=== PATIENT | female | born 1960 | race Caucasian/White ===

== ENCOUNTER 2020-02-26 20:22 | Emergency (ER) | payer MEDICARE, MEDICAID ==
[2020-02-26] MEDS ORDERED: Acetaminophen 500 MG TAB ONE (21:04)
--- NOTE | 2020-02-27 08:27 | RAD ---
RIGHT ANKLE 3 VIEWS: DATE: 02/26/2020. FINDINGS: Some soft tissue swelling is seen around the ankle, but no fractures were appreciated. The joint its elf appears normal. The surrounding bones showed no acute findings. IMPRESSION: Soft tissue swelling. POS: HOME
--- NOTE | 2020-02-27 08:38 | RAD ---
RIGHT LEG: DATE: 02/26/2020. FINDINGS: AP and lateral views are provided. No fracture or periosteal reaction was seen to explain leg pain. The tibia and fibula appear intact. The knee joint space appears normal and there is no sign of katia nt effusion there. A few very tiny minor osteophytes are beginning to form in the joint. IMPRESSION: No acute bony finding. POS: HOME
== END 2020-02-26 22:56 ==
LOC: BURERS 20:22
DX: S90.01XA Contusion of right ankle, initial encounter (principal); S80.11XA Contusion of right lower leg, initial encounter; W18.30XA Fall on same level, unspecified, initial encounter; I10 Essential (primary) hypertension; E11.9 Type 2 diabetes mellitus without complications; G40.909 Epilepsy, unspecified, not intractable, without status epilepticus

== ENCOUNTER 2020-05-23 09:58 | Outpatient (CLI) | payer MEDICARE, MEDICAID | END 2020-05-23 09:59 | disposition home or self-care (01) | LOC: BURRAD 09:58 | PROVIDERS: ATTEND Family Medicine | DX: M79.671 Pain in right foot (principal); M79.89 Other specified soft tissue disorders ==

== ENCOUNTER 2020-07-21 15:20 | Outpatient (CLI) | payer MEDICARE, OTHER | END 2020-07-21 15:21 | disposition home or self-care (01) | LOC: BURRAD 15:20 | PROVIDERS: ATTEND Family Medicine | DX: S93.401A Sprain of unspecified ligament of right ankle, initial encounter (principal); M25.571 Pain in right ankle and joints of right foot; M79.89 Other specified soft tissue disorders ==

== ENCOUNTER 2020-10-13 15:15 | Outpatient (CLI) | payer MEDICARE, MEDICAID ==
[2020-10-14 15:38] LABS: SARS-CoV-2 PCR by NAA Not Detected (NotDetected)
== END 2020-10-13 15:16 | disposition home or self-care (01) ==
LOC: BURMANOR 15:15
PROVIDERS: ATTEND Family Medicine
DX: U07.1 COVID-19 (principal); N39.0 Urinary tract infection, site not specified
CPT/HCPCS: U0003; U0005

== ENCOUNTER 2020-10-14 21:44 | Outpatient (CLI) | payer MEDICARE, OTHER | END 2020-10-14 21:45 | disposition home or self-care (01) | LOC: BURLABSP 21:44 | PROVIDERS: ATTEND Family Medicine | DX: J10.1 Influenza due to other identified influenza virus with other respiratory manifestations (principal) | CPT/HCPCS: 87804 ==

== ENCOUNTER 2020-10-16 21:11 | Outpatient (CLI) | payer MEDICARE, MEDICAID ==
[2020-10-16 22:33] LABS: Bilirubin Negative (Negative); Blood, Urine Negative (Negative); Clarity Clear (Clear); Glucose, Urine (Dipstick) Negative (Negative); Ketone, Urine Negative (Negative); Leukocyte Negative (Negative); Nitrite Negative (Negative); Protein, Urine (Dipstick) Negative (Neg-Trace); Specific Gravity, Urine 1.025 (1.005-1.030); Urobilinogen 0.2 mg/dL (Less than 2); pH, Urine 5.5 (5.0-9.0)
== END 2020-10-16 21:12 | disposition home or self-care (01) ==
LOC: BURMANOR 21:11
PROVIDERS: ATTEND Family Medicine
DX: N39.0 Urinary tract infection, site not specified (principal)
CPT/HCPCS: 81001; 87086

== ENCOUNTER 2020-12-11 17:06 | Outpatient (CLI) | payer MEDICARE, OTHER | END 2020-12-11 17:07 | disposition home or self-care (01) | LOC: BURRAD 17:06 | PROVIDERS: ATTEND Registered Nurse Community Health | DX: S92.901A Unspecified fracture of right foot, initial encounter for closed fracture (principal); M81.0 Age-related osteoporosis without current pathological fracture ==

== ENCOUNTER 2020-12-18 12:19 | Outpatient (CLI) | payer MEDICARE, OTHER | END 2020-12-18 12:20 | disposition home or self-care (01) | LOC: BURRAD 12:19 | PROVIDERS: ATTEND Registered Nurse Community Health | DX: S92.901D Unspecified fracture of right foot, subsequent encounter for fracture with routine healing (principal); S99.912A Unspecified injury of left ankle, initial encounter; M79.89 Other specified soft tissue disorders ==

== ENCOUNTER 2021-01-04 01:24 | Outpatient (CLI) | payer MEDICARE, OTHER | END 2021-01-04 01:25 | disposition home or self-care (01) | LOC: BURMANOR 01:24 | PROVIDERS: ATTEND Family Medicine | DX: R60.0 Localized edema (principal) | CPT/HCPCS: 85379 ==

== ENCOUNTER 2021-04-24 10:33 | Outpatient (CLI) | payer MEDICARE, OTHER | END 2021-04-24 10:34 | disposition home or self-care (01) | LOC: BURRAD 10:33 | PROVIDERS: ATTEND Family Medicine | DX: M79.671 Pain in right foot (principal); M79.89 Other specified soft tissue disorders; M77.31 Calcaneal spur, right foot ==

== ENCOUNTER 2021-07-21 16:34 | Outpatient (CLI) | payer MEDICARE, OTHER | END 2021-07-21 16:35 | disposition home or self-care (01) | LOC: BURMANOR 16:34 | PROVIDERS: ATTEND Nurse Practitioner Family | DX: G40.909 Epilepsy, unspecified, not intractable, without status epilepticus (principal) | CPT/HCPCS: 80185 ==

== ENCOUNTER 2021-09-11 12:52 | Outpatient (CLI) | payer MEDICARE, OTHER | END 2021-09-11 12:53 | disposition home or self-care (01) | LOC: BURRAD 12:52 | PROVIDERS: ATTEND Family Medicine | DX: U07.1 COVID-19 (principal) | CPT/HCPCS: 71046 ==

== ENCOUNTER 2021-11-15 09:36 | Emergency (ER) | payer MEDICARE, MEDICAID | END 2021-11-15 11:30 | disposition home or self-care (01) | LOC: BURERS 09:36 | DX: Z71.1 Person with feared health complaint in whom no diagnosis is made (principal); I10 Essential (primary) hypertension; E11.9 Type 2 diabetes mellitus without complications; G40.909 Epilepsy, unspecified, not intractable, without status epilepticus | CPT/HCPCS: 99283 ==

== ENCOUNTER 2021-11-20 17:06 | Outpatient (CLI) | payer MEDICARE, MEDICAID | END 2021-11-20 17:07 | disposition home or self-care (01) | LOC: BURRAD 17:06 | PROVIDERS: ATTEND Nurse Practitioner Family | DX: S99.921A Unspecified injury of right foot, initial encounter (principal); S99.922A Unspecified injury of left foot, initial encounter; S92.411A Displaced fracture of proximal phalanx of right great toe, initial encounter for closed fracture; M79.89 Other specified soft tissue disorders ==

== ENCOUNTER 2022-01-07 11:46 | Outpatient (CLI) | payer MEDICARE, OTHER | END 2022-01-07 11:47 | disposition home or self-care (01) | LOC: BURRAD 11:46 | PROVIDERS: ATTEND Registered Nurse Community Health | DX: M25.561 Pain in right knee (principal) ==

== ENCOUNTER 2022-01-19 23:21 | Outpatient (CLI) | payer MEDICARE, OTHER ==
[2022-01-20 02:20] LABS: Anion Gap 14 mmol/L (10-20); BUN (Urea Nitrogen) 11 mg/dL (9.8-20.1); Calc. Creatinine Clearance 0 mL/min (70-130); Calcium 8.5 mg/dL (7.8-10.44); Carbon Dioxide 26 mmol/L (22-29); Chloride 105 mmol/L (98-107); Estimated GFR 95; Glucose 101 mg/dL (70-105); Potassium 3.8 mmol/L (3.5-5.1); Sodium 141 mmol/L (136-145); Uric Acid 4.6 mg/dL (2.6-6.0)
[2022-01-20 02:30] LABS: Hemoglobin 8.6 g/dL (12.0-16.0); Mean Corpuscular HGB CONC 33.4 g/dL (32.0-36.0); Mean Platelet Volume 6.2 fL (7.4-10.4); Platelet Count 305 10x3/uL (130-400); RBC Distribution Width 12.6 % (11.5-14.5); Red Blood Cell (RBC) Count 2.53 mill/uL (4.20-5.40); White Blood Cell (WBC) Count 8.8 10x3/uL (4.8-10.8)
[2022-01-20 05:14] LABS: Bilirubin Negative (Negative); Blood, Urine Negative (Negative); Clarity Clear (Clear); Glucose, Urine (Dipstick) Negative (Negative); Ketone, Urine Trace mg/dL (Negative); Leukocyte Negative (Negative); Nitrite Negative (Negative); Protein, Urine (Dipstick) Negative (Neg-Trace); Specific Gravity, Urine 1.025 (1.005-1.030); Urobilinogen 0.2 mg/dL (Less than 2)
[2022-01-20 05:53] LABS: Bacteria/HPF Rare-Few HPF (None Seen); RBC/HPF None Seen HPF (0-3); WBC/HPF 0-3 HPF (0-3)
== END 2022-01-19 23:22 | disposition home or self-care (01) ==
LOC: BURMANOR 23:21
PROVIDERS: ATTEND Registered Nurse Community Health
DX: M79.671 Pain in right foot (principal); R29.6 Repeated falls
CPT/HCPCS: 80048; 81001; 84550; 85027

== ENCOUNTER 2022-03-09 15:06 | Outpatient (CLI) | payer MEDICARE, OTHER ==
[2022-03-09 15:16] LABS: Hemoglobin 11.3 g/dL (12.0-16.0); Mean Corpuscular HGB CONC 32.6 g/dL (32.0-36.0); Mean Corpuscular Hemoglobin 34.2 pg (27.0-31.0); Mean Platelet Volume 6.5 fL (7.4-10.4); Platelet Count 274 10x3/uL (130-400); RBC Distribution Width 11.8 % (11.5-14.5); Red Blood Cell (RBC) Count 3.31 mill/uL (4.20-5.40); White Blood Cell (WBC) Count 5.9 10x3/uL (4.8-10.8)
[2022-03-09 15:24] LABS: Anion Gap 17 mmol/L (10-20); BUN (Urea Nitrogen) 9 mg/dL (9.8-20.1); Calc. Creatinine Clearance 0 mL/min (70-130); Calcium 9.1 mg/dL (7.8-10.44); Carbon Dioxide 26 mmol/L (22-29); Chloride 101 mmol/L (98-107); Estimated GFR 100; Glucose 89 mg/dL (70-105); Potassium 4.5 mmol/L (3.5-5.1); Sodium 139 mmol/L (136-145)
== END 2022-03-09 15:07 | disposition home or self-care (01) ==
LOC: BURMANOR 15:06
PROVIDERS: ATTEND Nurse Practitioner Family
DX: M62.81 Muscle weakness (generalized) (principal)
CPT/HCPCS: 80048; 85027

== ENCOUNTER 2022-03-13 14:26 | Outpatient (CLI) | payer MEDICARE, OTHER ==
[2022-03-13 14:37] LABS: Bilirubin Negative (Negative); Blood, Urine Negative (Negative); Clarity Slightly Cloudy (Clear); Glucose, Urine (Dipstick) Negative (Negative); Ketone, Urine Trace mg/dL (Negative); Leukocyte Negative (Negative); Nitrite Negative (Negative); Protein, Urine (Dipstick) Trace mg/dL (Neg-Trace); Specific Gravity, Urine 1.025 (1.005-1.030); Urobilinogen 0.2 mg/dL (Less than 2)
[2022-03-13 14:56] LABS: RBC/HPF None Seen HPF (0-3)
[2022-03-13 14:57] LABS: Bacteria/HPF Rare-Few HPF (None Seen); Squamous Epithelial None Seen HPF (0-3); WBC/HPF 0-3 HPF (0-3)
[2022-03-13 14:58] LABS: Calcium Oxalate Crystals 2+ HPF (None Seen)
[2022-03-13 14:59] LABS: Urine Culture Reflex No No
== END 2022-03-13 14:27 | disposition home or self-care (01) ==
LOC: BURMANOR 14:26
PROVIDERS: ATTEND Nurse Practitioner Family
DX: M62.81 Muscle weakness (generalized) (principal)
CPT/HCPCS: 81001

== ENCOUNTER 2022-06-22 15:47 | Emergency (ER) | payer MEDICARE, OTHER | END 2022-06-22 16:47 | disposition short-term general hospital (02) | LOC: BURERS 15:47 | DX: M79.89 Other specified soft tissue disorders (principal); I10 Essential (primary) hypertension; E11.9 Type 2 diabetes mellitus without complications | CPT/HCPCS: 99284 ==

== ENCOUNTER 2022-09-18 09:53 | Outpatient (CLI) | payer MEDICARE, OTHER | END 2022-09-18 09:54 | disposition home or self-care (01) | LOC: BURRAD 09:53 | PROVIDERS: ATTEND Family Medicine | DX: M25.552 Pain in left hip (principal); M54.9 Dorsalgia, unspecified; M47.816 Spondylosis without myelopathy or radiculopathy, lumbar region; M47.814 Spondylosis without myelopathy or radiculopathy, thoracic region; W19.XXXD Unspecified fall, subsequent encounter | CPT/HCPCS: 72070; 72100 ==

== ENCOUNTER 2023-06-12 11:41 | Emergency (ER) | payer MEDICARE, OTHER ==
[2023-06-12] MEDS ORDERED: Acetaminophen 500 MG TAB ONE (12:29)
== END 2023-06-12 13:55 | disposition home or self-care (01) ==
LOC: BURERS 11:41
DX: S40.012A Contusion of left shoulder, initial encounter (principal); S80.02XA Contusion of left knee, initial encounter; I10 Essential (primary) hypertension; E11.9 Type 2 diabetes mellitus without complications; W05.0XXA Fall from non-moving wheelchair, initial encounter